=== PATIENT | female | born 1995 ===

== ENCOUNTER 2016-09-25 17:53 | Emergency (ER) | payer OTHER ==
[~2016-09-25] VITALS: Ht 168.9 cm; Wt 123.8 kg
[2016-09-25 17:57] VITALS: BP 132/89
--- NOTE | 2016-09-25 18:39 | ED INFLUENZA/URI COMPLAINT ---
History of Present Illness General Chief Complaint: General Adult Stated Complaint: POS STREP, BRONCHITIS; FEVER, CHILLS Source: patient, old records Exam Limitations: no limitations Vital Signs & Intake/Output Vital Signs & Intake/Output Vital Signs Date Time Temp Pulse Resp B/P Pulse O2 O2 Flow FiO2 Ox Delivery Rate 09/25 1901 100.3 09/25 1757 96.9 78 18 132/89 98 Room Air ED Intake and Output 09/26 0000 09/25 1200 Intake Total 200 Output Total Balance 200 Intake, Oral 200 Patient 273 lb Weight Allergies Coded Allergies: No Known Allergies (09/25/16) Reconcile Medications Albuterol Sulfate 2.5 MG/3 ML (0.083 %) VIAL.NEB 1 Vial INH/EDI Q4-6H PRN RESPIRATORY (Reported) Albuterol Sulfate 2.5 MG/3 ML (0.083 %) VIAL.NEB 1 Vial INH/EDI Q4P PRN wheezing Amoxicillin 500 MG TABLET 1 TAB PO BID uri Bupropion HCl (Bupropion HCl Sr) 150 MG TABLET.ER 1 TAB PO BID MENTAL HEALTH (Reported) D-Methorphan/Acetamin/Doxylamn (VicEvergram Nyquil Liquicaps) 15 MG-325 MG-6.25 MG CAPSULE 2 CAP PO AD FLU LIKE SYMPTOMS (Reported) D-Methorphan/PE/Acetaminophen (Vicks Dayquil Liquid) 10 MG-5 MG-325 MG/15 ML LIQUID 2 CAP PO AD FLU LIKE SYMPTOMS (Reported) Metformin HCl (Metformin HCl ER) 500 MG TAB.ER.24H 4 TAB PO QPM WEIGHT MANAGEMENT (Reported) Methylprednisolone. (Medrol) 4 MG TAB.DS.PK 1 DP PO AD uri 6 on day 1 then reduce by one tablet daily until gone Norethindrone-E.estradiol-Iron (Blisovi 24 Fe Tablet) 1 MG-20 MCG (24)/75 MG (4) TABLET 1 TAB PO DAILY CONTROL (Reported) Trazodone HCl 50 MG TABLET 1 TAB PO QPM SLEEP (Reported) Triage Note: STATES THAT SHE WAS DIAGNOSED WITH STREP MONDAY AND FINISHED HER ABT THIS AM, STATES THAT SHE JUST HAS BEEN FEELING WEAK, AND HAS HAD FEVERS. AFEBRILE AT TRIAGE. C/O CHILLS . Triage Nurses Notes Reviewed? yes Onset: Abrupt Duration: day(s): (), better, constant Timing: recent history Severity: mild Severity Numbers: 5 Prior Episodes/Possible Cause: occassional episodes No Modifying Factors: none Associated Symptoms: cough, muscle aches, CHILLS : No Patient currently breastfeeds: No HPI: 21-year-old female no medical history presents emergency room for evaluation complaining of chills nonproductive cough nausea that has been present for the past 9 days. The patient just finished a course of azithromycin today as well as a 3 day course of 20 mg of prednisone. She states while she was on the steroids he symptoms improved however they beginning per se worse since he been off the medication. Multiple sick contacts at home with similar symptoms. She denies chest pain shortness of breath she does not smoke. No abdominal pain urinary symptoms. There are no other modifying factors or associated symptoms otherwise. She is not taken any tveh-air-liqswnz medications today (MELISSA MONZON) Past History Travel History Traveled to [place] past 21 day No Medical History Any Pertinent Medical History? none Neurological: NONE EENT: NONE Cardiovascular: NONE Respiratory: NONE Gastrointestinal: NONE Hepatic: NONE Renal: NONE Psychiatric: NONE Endocrine: NONE Blood Disorders: NONE Cancer(s): NONE ENGINE MANAGER/Reproductive: NONE Surgical History Surgical History: none Psychosocial History What is your primary language Bengali Tobacco Use: Never used ETOH Use: denies use Illicit Drug Use: denies illicit drug use Family History Hx Contributory? No (MELISSA MONZON) Review of Systems Review of Systems Constitutional: Reports: see HPI. All Other Systems: Reviewed and Negative Comments Review of systems: See HPI, All other systems negative. Constitutional, chills no fever, no malaise HEENT: No visual changes no sore throat no congestion, Cardiovascular: No chest pain , no palpitation Skin, no rashes, no change in skin Respiratory: No dyspnea cough no sputum no hemoptysis GI: No nausea no vomiting, no diarrhea, : No dysuria Muscle skeletal: No joint pain, no back pain, no neck pain, Neurologic: No numbness no headache Psych: No stress Heme/endocrine: No bruising no bleeding Immunology: No lymphadenopathy (MELISSA MONZON) Physical Exam Physical Exam General Appearance: well developed/nourished, no apparent distress, alert, awake , comfortable Ears, Nose, Throat: moist mucous membrane Comments: Well-developed well-nourished patient in no apparent distress. Head/Face: Atraumatic, no maxillary/frontal sinus tenderness, no facial swelling Eyes: PERRL, EOMI, no conjunctival injection. No nystagmus Ear:External auditory canal and Tympanic membranes clear, no erythema, no FB. Nose: atraumatic.Normal inspection: No bleeding, Throat: Moist mucous membranes.Pharynx normal. No pharyngeal erythema/exudate seen. No stridor/drooling or assymetry. No swelling or edema. Neck: Supple, no lymphadenopathy, FROM Back: FROM, Nontender Cardiovascular: Regular rate and rhythms no murmurs rubs or gallops, Respiratory: Chest nontender.There were no bony deformities, no asymmetry. No respiratory distress. Patient speaking in full complete sentences. Breath sounds clear to auscultation bilaterally: NO W/R/R Extremities: full range of motion Neuro: Alert and oriented x3 Skin: Warm & dry;No appreciable rash on exposed skin Psych: Mood affect normal, normal memory normal judgment. Core Measures Severe Sepsis Present: No Septic Shock Present: No (MELISSA MONZON) Progress Differential Diagnosis: influenza, otitis, pneumonia, pharyngitis, sinusitis Plan of Care: Orders Procedure Date/time Status RAPID VIRAL INFLUENZA A 09/26 1855 Complete Microbiology 09/25 190 NASOPHARYN: Influenza Virus A & B Rapid Smear - COMP Patient is nontoxic appearing afebrile lungs are clear auscultation speaking full complete sentences, FLU SWAB Was ordered Discussed with the patient her swab results need for supportive care prescription for amoxicillin, Medrol Dosepak provided advised fluids, Motrin as needed they feel comfortable with plan cleared for discharge (MELISSA MONZON) Initial ED EKG: none (MELISSA MONZON) Departure Departure Time of Disposition: 1936 Disposition: HOME OR SELF CARE Condition: Stable Clinical Impression Primary Impression: URI (upper respiratory infection) Referrals: CHARLES BROUSSARD,JOSE DANIEL Alvarado (PCP/Family) Additional Instructions: Amoxicillin as directed, Medrol Dosepak as discussed. continue using the albuterol in the nebulizer as discussed. Drink plenty Of fluids Tylenol or Motrin bland diet. Follow-up with your primary care physician this week return with any concerns Departure Forms: Customer Survey General Discharge Information Prescriptions: Current Visit Scripts Methylprednisolone. (Medrol) 1 DP PO AD #1 DP 6 on day 1 then reduce by one tablet daily until gone Amoxicillin 1 TAB PO BID #14 TAB Albuterol Sulfate 1 Vial INH/EDI Q4P PRN wheezing #50 Vial (ADAMA BLANCHARD,MELISSA) PA/HIGH PRESSURE BOILER OPERATOR Co-Sign Statement Statement: ED Attending supervision documentation- [] I saw and evaluated the patient. I have also reviewed all the pertinent lab results and diagnostic results. I agree with the findings and the plan of care as documented in the PA's/HIGH PRESSURE BOILER OPERATOR's documentation. [x] I have reviewed the ED Record and agree with the PA's/HIGH PRESSURE BOILER OPERATOR's documentation. [] Additions or exceptions (if any) to the PAs/HIGH PRESSURE BOILER OPERATOR's note and plan are summarized below: [] (LOUISE BROUSSARD,VIJAYA Oleary)
[2016-09-25] MEDS ORDERED: BUPROPION HCL150 M4 PO (18:42)
[2016-09-25] MEDS ORDERED: BLISOVI 24 FE1 EACH PO (18:42)
[2016-09-25] MEDS ORDERED: TRAZODONE HCL50 M1 PO (18:42)
[2016-09-25] MEDS ORDERED: METFORMIN HCL500 M4 PO (18:43)
[2016-09-25] MEDS ORDERED: VICKS DAYQUIL236 ML PO (18:45)
[2016-09-25] MEDS ORDERED: ALBUTEROL2.5 MG/3 M INH/SOL ×2 (18:45→19:40)
[2016-09-25] MEDS ORDERED: VICKS NYQUIL PO (18:46)
[2016-09-25] MEDS ORDERED: AMOXICILLIN500 M3 PO (19:40)
[2016-09-25] MEDS ORDERED: MEDROL4 M2 PO (19:40)
== END 2016-09-25 19:44 ==
LOC: ERH 17:53
DX: J06.9 Acute upper respiratory infection, unspecified (principal)
CPT/HCPCS: 87804; 87804-59